=== PATIENT | female | born 1985 | race African-American/Black ===

== ENCOUNTER 2017-12-21 07:25 | Inpatient (IN) | payer BC, MEDICAID ==
[2017-12-21] MEDS ORDERED: OXYTOCIN/NORMAL SALINE 20 UNIT/1,000 ML RTUINJ ONE (09:27)
[2017-12-21] MEDS ORDERED: OXYTOCIN/NORMAL SALINE 20 UNIT/1,000 ML RTUINJ IV PRN ×2 (10:00→17:23)
[2017-12-21] MEDS ORDERED: RINGERS SOLUTION,LACTATED 1,000 ML IV PRN (10:00)
[2017-12-21] MEDS ORDERED: RINGERS SOLUTION,LACTATED 300 ML IV ONE (10:00)
[2017-12-21 11:14] LABS: ABSOLUTE EOSINOPHILS # (AUTO) 0.2 10^3/uL (0.0-0.6); ABSOLUTE LYMPHOCYTES (AUTO) 1.5 10^3/uL (0.5-4.7); ABSOLUTE MONOCYTES (AUTO) 0.5 10^3/uL (0.1-1.4); ABSOLUTE NEUT (AUTO) 3.9 10^3/uL (1.7-8.2); BASOPHILS % (AUTO) 0.4 % (0-2); EOSINOPHILS % (AUTO) 3.4 % (0-6); HEMATOCRIT 33.6 % (36.0-47.0); HEMOGLOBIN 11.2 g/dL (12.0-15.5); LYMPHOCYTES % (AUTO) 24.4 % (13-45); MEAN CORPUSCULAR HEMOGLOBIN 28.9 pg (27.0-33.4); MEAN CORPUSCULAR HGB CONC 33.4 g/dL (32.0-36.0); MEAN CORPUSCULAR VOLUME 87 fl (80-97); MONOCYTES % (AUTO) 7.7 % (3-13); PLATELET COUNT 210 10^3/uL (150-450); RED BLOOD COUNT 3.88 10^6/uL (3.72-5.28); RED CELL DISTRIBUTION WIDTH 15.5 % (11.5-14.0); SEGMENTED NEUTROPHILS % (AUTO) 64.1 % (42-78); TOTAL CELLS COUNTED % (AUTO) 100 %; WHITE BLOOD COUNT 6.1 10^3/uL (4.0-10.5)
[2017-12-21 12:21] LABS: APPEARANCE,URINE CLEAR; BILIRUBIN,URINE NEGATIVE (NEGATIVE); COLOR,URINE STRAW; GLUCOSE, URINE NEGATIVE (NEGATIVE); KETONES,URINE TRACE mg/dL (NEGATIVE); LEUKOCYTE ESTERASE,URINE SMALL (NEGATIVE); NITRITE,URINE NEGATIVE (NEGATIVE); PROTEIN,URINE NEGATIVE (NEGATIVE); URINE SPECIFIC GRAVITY 1.004; UROBILINOGEN,URINE NEGATIVE mg/dL (<2.0)
[2017-12-21 12:43] LABS: URINE AMPHETAMINES SCREEN NEGATIVE; URINE BARBITURATES SCREEN NEGATIVE; URINE BENZODIAZEPINES SCREEN NEGATIVE; URINE COCAINE SCREEN NEGATIVE; URINE MARIJUANA (THC) SCREEN NEGATIVE; URINE METHADONE SCREEN NEGATIVE; URINE PHENCYCLIDINE SCREEN NEGATIVE
[2017-12-21] MEDS ORDERED: BUPIVACAINE HCL 0.25 % INJ/PF (2.5 MG/1 ML) 30 ML VIAL ONE (13:27)
[2017-12-21] MEDS ORDERED: FENTANYL/BUPIVACAINE/NS/PF 300 MCG/150 ML RTUINJ EPI ONE (13:27)
[2017-12-21] MEDS ORDERED: EPHEDRINE SULFATE INJ 50 MG/1 ML AMPULE ONE (13:27)
--- NOTE | 2017-12-21 16:24 | Admission Physical ---
Datetime Report Generated by CPN: 12/21/2017 16:24 CURRENT ADMISSION Chief Complaint: Scheduled Induction of Labor Indication for Induction: Other Indication for Induction- Other: Elective Admit Impression : Term, Intrauterine ; No Active Labor; Intact Membranes; Induction of Labor Admit Plan: Admit to Unit; Initiate Labor Induction Protocol ALLERGIES Medication Allergies: No Known Allergies (08/01/2012) OBSTETRICAL HISTORY EDC: 12/20/2017 00:00 : 6 Para: 3 Term: 3 SAB: 2 Livin Gestational Diabetes: No Rh Sensitization: No Incompetent Cervix: No LIOR: No Infertility: No ART Treatment: No Uterine Anomaly: No IUGR: No Hx Previous C/S: No Macrosomia: No Hx Loss/Stillborn: No PIH: No Hx : No Placenta Previa/Abruption: No Depression/PP Depression: No PTL/PROM: No Post Hemorrhage: No Current Procedures: Ultrasound; NST SEE RECORDS Alcohol: No Marijuana : No Cocaine: No Other Illicit Drugs: No Cigarettes: Never Smoker. 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: No Heart Disease: No Hosp/Surgery: No Autoimmune Disorder: Yes Anesthetic Complications: No Kidney Disease: No Abnormal Pap Smear: No Neuro/Epilepsy: No Psychiatric Disorders: No Other Medical Diseases: No Hepatitis/Liver Disease: No Significant Family History: No Varicosities/Phlebitis: No Trauma/Violence : No Thyroid Dysfunction: No Medical History Comments: RA, DOUBLE KNEE REPLACEMENT, UMBILLICAL HERNIA, HX PRE-E INFECTIOUS HISTORY Gonorrhea: No Genital Herpes: No Chlamydia: No Tuberculosis: No Syphilis: No Hepatitis: No HIV/AIDS Exposure: No Rash or Viral Illness: No HPV: No PHYSICAL EXAM General: Normal HEENT: Normal Neurologic: Normal Thyroid: Deferred Heart: Normal Lungs: Normal Breast: Deferred Back: Normal Abdomen: Normal Genitourinary Exam: Normal Extremities: Normal DTRs: Normal Pelvic Type: Adequate Physical Exam Comments: Pelvis proven to 8#0oz Vital Signs: Reviewed VAGINAL EXAM Dilatation: 3 Effacement: 50 Station: -2 Contraction Comments: rare MEMBRANES Membranes: Intact FETUS A EGA: 40.1 Monitoring: External US FHR- Baseline: 145 Variability: Moderate 6-25bpm Accelerations: 15X15 Decelerations: None FHR Category: Category I Presentation: Vertex Admit Comment: 32yo at 40+1ega presents for elective IOL scheduled by another provider int he office. GBS negative. Patient has a history of RA and has had bilateral knees replaced. Reviewed risks benefits and alternatives including going home. Reviewed risks of elective IOL and patient desires to proceed with elective procedure. H/o PreE - normal BPs. H/o anemia. Obesity. nromal GTT. Normal Informaseq. Anticipate . PLANS FOR LABOR AND DELIVERY Pain Management: Epidural Feeding Preference: Breast Benefit of Breast Feed Discussed: Yes INFORMED CONSENT Informed Consent Obtained: Vaginal Delivery; Induction of Labor; Risks, Benefits and Alternatives Discussed Signature: with User ID: [email or web address]
[2017-12-21] MEDS ORDERED: LIDOCAINE 1% INJ-PF (10 MG/ML) 30 ML SDV ONE (16:45)
[2017-12-21] MEDS ORDERED: MISOPROSTOL 0.2 MG TABLET ONE (16:45)
[2017-12-21] MEDS ORDERED: PSEUDOEPHEDRINE HCL 30 MG TABLET PO PRN (17:23)
[2017-12-21] MEDS ORDERED: MEASLES,MUMPS&RUBELLA VACC/PF 0.5 ML VIAL SUBCUT PRN (17:23)
[2017-12-21] MEDS ORDERED: DIBUCAINE 1% OINTMENT 28 GM TP PRN (17:23)
[2017-12-21] MEDS ORDERED: PROMETHAZINE HCL 25 MG TABLET PO PRN (17:23)
[2017-12-21] MEDS ORDERED: PROMETHAZINE HCL 25 MG SUPP.RECT PR PRN (17:23)
[2017-12-21] MEDS ORDERED: ACETAMINOPHEN WITH CODEINE #3 TABLET PO PRN (17:23)
[2017-12-21] MEDS ORDERED: ACETAMINOPHEN 325 MG TABLET PO PRN (17:23)
[2017-12-21] MEDS ORDERED: BENZOCAINE/MENTHOL AEROSOL SPRAY 56 ML TOP PRN (17:23)
[2017-12-21] MEDS ORDERED: DIPH/PERTUSS(ACELL)/TETANUS VAC/PF 0.5 ML SYR (>=10YO) IM PRN (17:23)
[2017-12-21] MEDS ORDERED: MAGNESIUM HYDROXIDE SUSP 30 ML UDCUP PO PRN (17:23)
[2017-12-21] MEDS ORDERED: DIPHENHYDRAMINE HCL 25 MG CAPSULE PO PRN (17:23)
[2017-12-21] MEDS ORDERED: GLYCERIN/WITCH HAZEL LEAF 1 EACH MED..PAD TP PRN (17:23)
[2017-12-21] MEDS ORDERED: NA PHOS,M-B/NA PHOS,DI-BA (ADULT) 133 ML ENEMA PR PRN (17:23)
[2017-12-21] MEDS ORDERED: MISOPROSTOL 0.2 MG TABLET PR PRN (17:23)
[2017-12-21] MEDS ORDERED: ZOLPIDEM TARTRATE 5 MG TABLET PO PRN (17:23)
[2017-12-21] MEDS ORDERED: PROMETHAZINE HCL INJ 25 MG/1 ML VIAL IV PRN (17:23)
--- NOTE | 2017-12-21 19:25 | Delivery Summary ---
Del Sum A-C Datetime Report Generated by CPN: 12/21/2017 19:24 DELIVERY PERSONNEL DELIVERY PERSONNEL: [id number] Delivery Doctor:: Katie Benson, Anesthesiologist:: Elissa Wen MD Labor and Delivery Nurse:: Shayna Russell, social sciences research scientist Nurse:: Mira Acuna, [employer] District Operations Manager:: Dr. Fredrick Canseco Student Observers:: Sofi Thornton, SHELLEY Crm Consultant/AUTO BODY SERVICE MECHANIC: Etta VanBeekom, SERVICE OR WORK DISPATCHER MATERNAL INFORMATION Delivery Anesthesia: Epidural Medications After Delivery: Pitocin Bolus-Please Comment Maternal Complications: None Other Maternal Complications: Elective IOL Provider Comments: VFI delivered in Direct OA presentation. Loose nuchal cord easily reduced. Shoulders and body delivered without difficulty. Cord doubly clamped and cut and to maternal abdomen for NRP. Placenta delivered intact spontaneously. FF at U. No perineal lacerations. Meconium noted at SROM. Mother and baby stable upon provider leaving the room. LABOR SUMMARY EDC: 12/20/2017 00:00 No. Babies in Womb: 1 Attempted: No Labor Anesthesia: Epidural LABOR INFORMATION Reason for Induction: Other Reason for Induction- Other: Elective Onset of Labor: 12/21/2017 12:54 Complete Dilatation: 12/21/2017 16:43 Oxytocin: Induction Group B Beta Strep: NEG Antibiotics # of Doses: 0 Antibiotics Time of Last Dose: 0 Name of Antibiotic Given: 0 Steroids Given: None Reason Steroids Not Administered: Not Applicable MEMBRANES Membranes Rupture Method: Spontaneous Rupture of Membranes: 12/21/2017 16:43 Length of Rupture (hr): 0.30 Amniotic Fluid Color: Light Meconium Amniotic Fluid Amount: Moderate Amniotic Fluid Odor: Normal STAGES OF LABOR Stage 1 hr: 3 Stage 1 min: 49 Stage 2 hr: 0 Stage 2 min: 18 Stage 3 hr: 0 Stage 3 min: 4 Total Time in Labor hr: 4 Total Time in Labor min: 11 VAGINAL DELIVERY Episiotomy: None Laceration #1: None Laceration Extension #1: N/A Laceration Repair: Not Applicable Sponge Count Correct: Yes Sharps Count Correct: Yes BABY A INFORMATION Delivery Date/Time: 12/21/2017 17:01 Method of Delivery: Vaginal Born in Route : No : N/A Forceps: N/A Vacuum Extraction: N/A Shoulder Dystocia : No PRESENTATION/POSITION BABY A Presentation: Cephalic Cephalic Presentation: Vertex Vertex Position: Left Occipital Anterior Breech Presentation: N/A PLACENTA INFORMATION BABY A Placenta Delivery Time : 12/21/2017 17:05 Placenta Method of Delivery: Spontaneous Placenta Status: Delivered SCORES BABY A Heart Rate 1 min: >100 bpm Resp Effort 1 min: Good Cry Reflex Irritability 1 min: Cough or Sneeze or Pulls Away Muscle Tone 1 min: Active Motion Color 1 min: Body Nankin, Extremities Blue SCORE 1 MIN: 9 Heart Rate 5 min: >100 bpm Resp Effort 5 min: Good Cry Reflex Irritability 5 min: Cough or Sneeze or Pulls Away Muscle Tone 5 min: Active Motion Color 5 min: Body Nank[place], Extremities Blue SCORE 5 MIN: 9 INFANT INFORMATION BABY A Gestational Age at Delivery: 40.1 Gestational Status: Full Term- 39- 40.6 Weeks Outcome : Liveborn Infant Condition : Stable Sex: Female IDENTIFICATION BABY A Infant Verification Date/Time: 12/21/2017 17:36 ID Band Number: [id number] Mother's Name Verified: Yes RN Verifying : Brooke Peralta [employer] Additional Verifying Personnel: Garrett Barrientos US WEIGHT/LENGTH BABY A Birthweight (gm): 3590 Weight (lb): 7 Weight (oz): 15 Infant Length (in): 19.75 Length (cm): 50.17 CORD INFORMATION BABY A No. Cord Vessels: 3 Nuchal Cord : Around Neck x2, Loose Cord Blood Taken: Yes-For Storage (Mom's Blood type +) Suction: None ASSESSMENT BABY A Skin to Skin: Yes SIGNATURES Signature: with User ID: [email or web address]
[2017-12-21] MEDS ORDERED: IBUPROFEN 800 MG TABLET ONE (19:45)
[2017-12-21] MEDS: IBUPROFEN 800 MG TABLET PO SCH (19:46)
[2017-12-21] MEDS: DOCUSATE SODIUM 100 MG CAPSULE PO SCH (20:30)
[2017-12-21] MEDS: FERROUS SULFATE 325 MG TABLET PO SCH (20:30)
[2017-12-21] MEDS: ACETAMINOPHEN WITH CODEINE #3 TABLET PO PRN (20:54)
[2017-12-21] MEDS: FAMOTIDINE 20 MG TABLET PO SCH (22:16)
[2017-12-22 07:50] LABS: HEMATOCRIT 31.9 % (36.0-47.0); MEAN CORPUSCULAR HEMOGLOBIN 29.3 pg (27.0-33.4); MEAN CORPUSCULAR HGB CONC 34.4 g/dL (32.0-36.0); MEAN CORPUSCULAR VOLUME 85 fl (80-97); PLATELET COUNT 192 10^3/uL (150-450); RED BLOOD COUNT 3.74 10^6/uL (3.72-5.28); RED CELL DISTRIBUTION WIDTH 15.4 % (11.5-14.0); WHITE BLOOD COUNT 9.5 10^3/uL (4.0-10.5)
[2017-12-22] MEDS: FERROUS SULFATE 325 MG TABLET PO SCH ×2 (09:11→18:23)
[2017-12-22] MEDS: PRENATAL VITAMIN W DHA CAPSULE PO SCH (09:11)
[2017-12-22] MEDS: FAMOTIDINE 20 MG TABLET PO SCH ×2 (09:11→21:57)
[2017-12-22] MEDS: DOCUSATE SODIUM 100 MG CAPSULE PO SCH ×2 (09:11→18:22)
[2017-12-22] MEDS: SENNOSIDES/DOCUSATE 8.6-50 MG 1 EACH TABLET PO SCH (09:12)
[2017-12-22] MEDS: ACETAMINOPHEN WITH CODEINE #3 TABLET PO PRN ×2 (09:12→19:48)
--- NOTE | 2017-12-22 09:44 | PDOC PROGRESS REPORT ---
Subjective-OB Progress Note for:: 12/22/17 Subjective: pt states she feels well and no headache breast feeding going well Physical Exam (OB) Vital Signs: Temp Pulse Resp BP Pulse Ox 97.7 F 88 14 99/72 L 97 12/22/17 07:53 12/22/17 07:53 12/22/17 07:53 12/22/17 07:53 12/22/17 07:53 Intake & Output 12/21/17 12/22/17 12/23/17 06:59 06:59 06:59 Intake Total 350 Balance 350 Weight 87.5 kg - General In distress: None - PIH/Pre-Eclampsia Clonus: Negative Headache: Absent Epigastric Pain: No Visual Changes: No - Lochia Lochia Amount: Small 10-25 ml Lochia Color: Rubra/Red - Abdomen Description: Tender, Soft, Round Hernia Present: No Flatus Presence: Present Stool: Yes Fundal Description: Firm, Midline Fundal Height: u/u - u/2 - Respiratory Breath sounds: Clear - Abdominal Tenderness: Nontender Objective-Diagnostic Laboratory: 12/22/17 07:17 12/21/17 12/21/17 12/21/17 10:56 10:56 11:25 WBC 6.1 RBC 3.88 Hgb 11.2 L Hct 33.6 L MCV 87 MCH 28.9 MCHC 33.4 RDW 15.5 H Plt Count 210 Seg Neutrophils % 64.1 Lymphocytes % 24.4 Monocytes % 7.7 Eosinophils % 3.4 Basophils % 0.4 Absolute Neutrophils 3.9 Absolute Lymphocytes 1.5 Absolute Monocytes 0.5 Absolute Eosinophils 0.2 Absolute Basophils 0.0 Urine Color STRAW Urine Appearance CLEAR Urine pH 7.0 Ur Specific Dutton 1.004 Urine Protein NEGATIVE Urine Glucose (UA) NEGATIVE Urine Ketones TRACE H Urine Blood NEGATIVE Urine Nitrite NEGATIVE Ur Leukocyte Esterase SMALL H Urine WBC (Auto) 1 Urine RBC (Auto) 0 Blood Type B POSITIVE Antibody Screen NEGATIVE 12/22/17 07:17 WBC 9.5 RBC 3.74 Hgb 11.0 L Hct 31.9 L MCV 85 MCH 29.3 MCHC 34.4 RDW 15.4 H Plt Count 192 Seg Neutrophils % Lymphocytes % Monocytes % Eosinophils % Basophils % Absolute Neutrophils Absolute Lymphocytes Absolute Monocytes Absolute Eosinophils Absolute Basophils Urine Color Urine Appearance Urine pH Ur Specific Dutton Urine Protein Urine Glucose (UA) Urine Ketones Urine Blood Urine Nitrite Ur Leukocyte Esterase Urine WBC (Auto) Urine RBC (Auto) Blood Type Antibody Screen Assessment and Plan(PN) - Assessment and Plan (1) Elective induction of labor planned Is this a current diagnosis for this admission?: Yes (2) Meconium in amniotic fluid Is this a current diagnosis for this admission?: Yes (3) Post-dural puncture headache Is this a current diagnosis for this admission?: Yes (4) Vaginal delivery Is this a current diagnosis for this admission?: Yes - Time Spent with Patient Time with patient: Less than 15 minutes - Disposition Anticipated Discharge: Home Within: within 24 hours Disposition: continue present plan of management
[2017-12-22] MEDS: IBUPROFEN 800 MG TABLET PO SCH ×2 (15:14→21:56)
[2017-12-23 08:37] VITALS: BP 104/68
[2017-12-23] MEDS: IBUPROFEN 800 MG TABLET PO SCH (08:52)
[2017-12-23] MEDS: DOCUSATE SODIUM 100 MG CAPSULE PO SCH (08:53)
[2017-12-23] MEDS: PRENATAL VITAMIN W DHA CAPSULE PO SCH (08:53)
[2017-12-23] MEDS: SENNOSIDES/DOCUSATE 8.6-50 MG 1 EACH TABLET PO SCH (08:53)
[2017-12-23] MEDS: FERROUS SULFATE 325 MG TABLET PO SCH (08:53)
[2017-12-23] MEDS: FAMOTIDINE 20 MG TABLET PO SCH (08:54)
--- NOTE | 2017-12-23 11:28 | PDOC DISCHARGE SUMMARY ---
Final Diagnosis Discharge Date: 12/23/17 - Final Diagnosis (1) Elective induction of labor planned Is this a current diagnosis for this admission?: Yes (2) Vaginal delivery Is this a current diagnosis for this admission?: Yes Discharge Data - Discharge Medication Home Medications: Pnv No.95/Ferrous Fum/Folic AC [ Vitamin Tablet] 1 each PO DAILY Reason(s) for Admission: Induction of Labor Intrapartum Procedure(s): Spontaneous Vaginal Delivery - Diagnosis Test Laboratory: Temp Pulse Resp BP Pulse Ox 97.8 F 69 16 104/68 100 12/23/17 11:10 12/23/17 11:10 12/23/17 11:10 12/23/17 11:10 12/23/17 11:10 12/21/17 12/21/17 12/22/17 10:56 11:25 07:17 RBC 3.88 3.74 Hgb 11.2 L 11.0 L Hct 33.6 L 31.9 L Urine Opiates Screen NEGATIVE - Discharge information/Instructions Discharge Activity: Activity As Tolerated, Balance Activity w/Rest, No Lifting Over 10 Pounds, No Lifting/Push/Pulling, Pelvic Rest, No tub bath Discharge Diet: Regular Disposition: HOME, SELF-CARE Follow up with: [facility] in: 4, Weeks
== END 2017-12-23 13:50 | disposition home or self-care (01) | DRG 775 ==
LOC: LR 07:25 → 2S 20:14
PROVIDERS: ADMIT Student in an Organized Health Care Education/Training Program; ATTEND Student in an Organized Health Care Education/Training Program
PROC: 10E0XZZ Delivery of Products of Conception, External Approach (ICD-10-PCS; principal; 2017-12-21)
PROC: 4A1HXCZ Monitoring of Products of Conception, Cardiac Rate, External Approach (ICD-10-PCS; 2017-12-21)
PROC: 3E0R3GC Introduction of Other Therapeutic Substance into Spinal Canal, Percutaneous Approach (ICD-10-PCS; 2017-12-21)
DX: O99.89 Other specified diseases and conditions complicating pregnancy, childbirth and the puerperium (principal); M06.9 Rheumatoid arthritis, unspecified; Z96.653 Presence of artificial knee joint, bilateral; O99.02 Anemia complicating childbirth; D64.9 Anemia, unspecified; O89.4 Spinal and epidural anesthesia-induced headache during the puerperium; O99.214 Obesity complicating childbirth; E66.9 Obesity, unspecified; O77.0 Labor and delivery complicated by meconium in amniotic fluid; O69.81X0 Labor and delivery complicated by cord around neck, without compression, not applicable or unspecified; Z68.35 Body mass index [BMI] 35.0-35.9, adult; Z3A.40 40 weeks gestation of pregnancy; Z37.0 Single live birth
CPT/HCPCS: 36415; 80307; 81001; 85025; 85027; 86592; 86850; 86900; 86901; J2590; J3010; J3490